=== PATIENT | male | born 1990 | race Caucasian/White ===

== ENCOUNTER 2017-04-15 16:20 | Emergency (ER) | payer OTHER ==
[~2017-04-15] VITALS: Ht 177.8 cm; Wt 91.4 kg
[~2017-04-15 16:20] MED LIST: LISI40TA PO
[2017-04-15 16:52] VITALS: BP 179/120
[2017-04-15] MEDS ORDERED: KETOROLAC 30 MG/1 ML IM ONE (17:30)
[2017-04-15] MEDS ORDERED: KETOROLAC 30 MG/1 ML ONE (17:52)
[2017-04-15] MEDS ORDERED: LIDOCAINE 1%, 20ML ONE (18:09)
[2017-04-15] MEDS ORDERED: BACITRACIN ZINC OINT 500U/GM, 0.9 GM ONE (18:51)
[2017-04-15] MEDS ORDERED: METHOCARBAMOL 750 MG TABLET PO ONE (19:00)
[2017-04-15] MEDS ORDERED: METHOCARBAMOL 750 MG TABLET ONE (19:37)
== END 2017-04-15 20:25 | disposition home or self-care (01) ==
LOC: ED 19:30
DX: S16.1XXA Strain of muscle, fascia and tendon at neck level, initial encounter (principal); S29.012A Strain of muscle and tendon of back wall of thorax, initial encounter; S39.012A Strain of muscle, fascia and tendon of lower back, initial encounter; I10 Essential (primary) hypertension; Z91.14 Patient's other noncompliance with medication regimen; F12.10 Cannabis abuse, uncomplicated; V49.9XXA Car occupant (driver) (passenger) injured in unspecified traffic accident, initial encounter; Y93.89 Activity, other specified; Y99.8 Other external cause status; Y92.410 Unspecified street and highway as the place of occurrence of the external cause
CPT/HCPCS: 72072; 72110; 72125; 93005; 96372; 99284; J1885

== ENCOUNTER 2018-01-03 08:59 | Emergency (ER) | payer OTHER ==
[~2018-01-03] VITALS: Ht 177.8 cm; Wt 84.0 kg
[2018-01-03 09:01] VITALS: BP 164/102
[2018-01-03] MEDS ORDERED: KETOROLAC 30 MG/1 ML IM ONE (10:00)
[2018-01-03] MEDS ORDERED: KETOROLAC 30 MG/1 ML ONE (10:46)
== END 2018-01-03 11:04 | disposition home or self-care (01) ==
LOC: ED 09:49
DX: S60.222A Contusion of left hand, initial encounter (principal); I10 Essential (primary) hypertension; F17.210 Nicotine dependence, cigarettes, uncomplicated; J45.909 Unspecified asthma, uncomplicated; X58.XXXA Exposure to other specified factors, initial encounter; Y93.89 Activity, other specified; Y92.89 Other specified places as the place of occurrence of the external cause; Y99.8 Other external cause status
CPT/HCPCS: 29125; 73130; 96372; 99284; J1885

== ENCOUNTER 2018-01-14 07:46 | Emergency (ER) | payer MEDICAID ==
[~2018-01-14] VITALS: Ht 177.8 cm; Wt 85.1 kg
[2018-01-14 07:49] VITALS: BP 153/106
== END 2018-01-14 09:02 | disposition home or self-care (01) ==
LOC: ED 08:25
DX: S60.222A Contusion of left hand, initial encounter (principal); I10 Essential (primary) hypertension; X58.XXXA Exposure to other specified factors, initial encounter; Y93.89 Activity, other specified; Y92.89 Other specified places as the place of occurrence of the external cause; Y99.8 Other external cause status
CPT/HCPCS: 29105; 99283

== ENCOUNTER 2018-09-12 10:01 | Emergency (ER) | payer MEDICAID ==
[~2018-09-12] VITALS: Ht 180.3 cm; Wt 88.0 kg
--- NOTE | 2018-09-12 10:37 | NUR ---
PATIENT ARRIVES WITH PAIN TO LEFT THUMB THAT BEGAN TWO DAYS AGO WHEN HE WAS SHOVELING SNOW AND THE ALUMINUM SHOVEL BROKE LACERATING HIS THUMB. HE WENT TO [facility] AND THEY DID NOT STITCH IT AND PUT WRAP ON IT AND TOLD HIM TO NOT TOUCH UNTIL 48 HOURS. HE THEN TODAY ASSESSED AND THUMB IS PURPLE/BLACK WITH LACERATION TO THUMB THAT HAS SOME OOZING.
[2018-09-12] MEDS ORDERED: IBUPROFEN 800 MG TABLET ONE (10:40)
[2018-09-12] MEDS ORDERED: OXYcodone/APAP 5/325MG TABLET ONE (10:41)
[2018-09-12] MEDS ORDERED: IBUPROFEN 200 MG TABLET PO ONE (11:30)
[2018-09-12] MEDS ORDERED: OXYcodone/APAP 5/325MG TABLET PO ONE (11:30)
[2018-09-12 11:43] VITALS: BP 190/98
--- NOTE | 2018-09-12 11:45 | NUR ---
DISCHARGE INSTRUTIONS REVIEWED WITH PATIENT, SHOWS UNDERSTANDING. LEFT WITH INSTRUCTIONS FOR EXPLICIT FOLLOW UP.
--- NOTE | 2018-09-12 12:15 | NUR ---
CLEANSED AND DRESSED AREA.
== END 2018-09-12 12:37 | disposition home or self-care (01) ==
LOC: ED 11:16
DX: S61.022A Laceration with foreign body of left thumb without damage to nail, initial encounter (principal); J45.909 Unspecified asthma, uncomplicated; I10 Essential (primary) hypertension; F17.200 Nicotine dependence, unspecified, uncomplicated; W26.8XXA Contact with other sharp object(s), not elsewhere classified, initial encounter; Y93.89 Activity, other specified; Y92.098 Other place in other non-institutional residence as the place of occurrence of the external cause; Y99.8 Other external cause status
CPT/HCPCS: 99283